=== PATIENT | female | born 1950 | race Hispanic/Latino ===

== ENCOUNTER 2017-06-01 13:40 | Inpatient (IN) | payer MEDICARE, MEDICAID ==
[2017-06-01 15:26] LABS: Anion Gap 7 mmol/L (-14-95); Lactate 2.24 mmol/L (0.50-2.20); POC Est. GFR-MDRD-African-Amer Greater than 60 (2-60); POC Estimated GFR-MDRD Greater than 60 (2-60); pH (Venous) 7.417 (7.35-7.45); vO2 Saturation-calc 45.6 % (0.0-100.0)
[2017-06-01 16:11] LABS: #Lymphocytes 1.2 thou/uL (1.20-3.40); #Neutrophils 14.3 thou/uL (1.40-6.50); %Basophils 0.2 % (0.0-1.0); %Eosinophils 0.1 % (0.0-10.0); %Lymphocytes 7.3 % (21.0-51.0); %Monocytes 5.9 % (0.0-10.0); Hematocrit 36.7 % (36.0-47.0); Mean Platelet Volume 7.7 fL (7.4-10.4); Red Blood Cell (RBC) Count 4.08 mill/uL (4.20-5.40); White Blood Cell (WBC) Count 16.5 thou/uL (4.8-10.8)
--- NOTE | 2017-06-01 16:15 | RAD ---
1 VIEW CHEST: Date: 06/01/17 HISTORY: Body aches. Cramping. Chills. COMPARISON: None. FINDINGS: Portable upright chest demonstrates a normal cardiac silhouette. Pulmonary vessels and hilum are nor mal. Costophrenic angles are clear. No masses or consolidation. No pneumothorax or osseous abnormali ties. IMPRESSION: No acute cardiopulmonary process. POS: [facility]
[2017-06-01 16:31] LABS: Lactic Acid - Sepsis 2.6 mmol/L (0.5-2.2)
[2017-06-01 16:39] LABS: ALT (SGPT) 38 U/L (8-55); AST (SGOT) 36 U/L (5-34); Alkaline Phosphatase 85 U/L (40-150); Anion Gap 16 mmol/L (10-20); BUN (Urea Nitrogen) 16 mg/dL (9.8-20.1); Bilirubin, Total 0.3 mg/dL (0.2-1.2); CK (CPK) 111 U/L (29-168); Calc. Creatinine Clearance 0 mL/min (70-130); Calcium 9.6 mg/dL (7.8-10.44); Carbon Dioxide 23 mmol/L (23-31); Chloride 102 mmol/L (98-107); Estimated GFR-MDRD 83; Globulin 3.5 g/dL (2.4-3.5); Protein, Total 7.9 g/dL (6.0-8.3)
[2017-06-01] MEDS ORDERED: Ibuprofen 200 MG TAB ONE (16:42)
[2017-06-01] MEDS ORDERED: Acetaminophen 500 MG TAB ONE (16:42)
[2017-06-01 16:43] LABS: Troponin I Less than 0.010 ng/mL (< 0.028)
[2017-06-01 16:54] LABS: Bilirubin Negative (Negative); Blood, Urine Trace (Negative); Glucose, Urine (Dipstick) Negative (Negative); Ketone, Urine Negative (Negative); Nitrite Negative (Negative); Protein, Urine (Dipstick) Negative (Neg-Trace); Urobilinogen 0.2 mg/dL (0.2-1.0)
[2017-06-01 17:04] LABS: Bacteria/HPF None Seen HPF (None Seen); Hyaline Casts/LPF NONE SEEN LPF (0-3 Hyaline); RBC/HPF 0-3 HPF (0-3); Squamous Epithelial 0-3 HPF (0-3); WBC/HPF 0-3 HPF (0-3)
[2017-06-01] MEDS ORDERED: Piperacillin/Tazobactam 3.375 GM VIAL ONE (18:05)
[2017-06-01] MEDS ORDERED: Dextrose 5% in Water 1,000 ML IV PRN (18:47)
[2017-06-01] MEDS ORDERED: Dextrose 50% Abboject 50 ML SYRINGE SLOW IVP PRN (18:47)
[2017-06-01] MEDS ORDERED: Bisacodyl 5 MG TAB PO PRN (18:47)
[2017-06-01] MEDS ORDERED: HumaLOG 300 UNITS/3 ML VIAL SC PRN (18:47)
[2017-06-01] MEDS ORDERED: Acetaminophen 650 MG Suppository PR PRN (18:47)
[2017-06-01 19:38] VITALS: BMI 24.0
--- NOTE | 2017-06-01 19:46 | HP ---
PRIMARY CARE PROVIDER: [facility]. CHIEF COMPLAINT: Chills. HISTORY OF PRESENT ILLNESS: Ms. Peters is a pleasant 67-year-old lady, who was seen at [facility] on 06/01/2017. She reports that she was feeling well until today morning. Earlier today, she developed chills. Sh e reports feeling tired. She reports body aches. She reports lightheadedness. She denies any ches t pain. She denies any shortness of breath. She denies any cough, dysuria or increased frequency o f urination. She denies any abdominal pain. She reports that her whole body felt hot and cold at t he same time. She therefore presented to the emergency room. Please note that patient mainly speaks Mohawk. One of her family members was the theology teacher for th is clinical encounter. REVIEW OF SYSTEMS: The following complete review of systems was negative, unless otherwise mentione d in the HPI or below: CONSTITUTIONAL: Weight loss or gain, sense of well-being, ability to conduct usual activities, exer cise tolerance. SKIN/BREAST: Rash, itching, changes in hair growth or loss, nail changes, breast lumps, tenderness, swelling, nipple discharge. EYES: Vision, double vision, tearing, blind spots, pain. ENT/MOUTH: Headaches (location, time of onset, duration, precipitating factors), vertigo, lighthead edness, injury. Vision, double vision, tearing, blind spots, pain, nose bleeding, colds, obstruction , discharge, dental difficulties, gingival bleeding, dentures, neck stiffness, pain, tenderness, mas ses in thyroid or other areas. CARDIOVASCULAR: Precordial pain, substernal distress, palpitations, syncope, dyspnea on exertion, o rthopnea, nocturnal paroxysmal dyspnea, edema, cyanosis, hypertension, heart murmurs, varicosities, phlebitis, claudication. RESPIRATORY: Pain, shortness of breath, wheezing, stridor, cough, hemoptysis, fever or night sweats . GASTROINTESTINAL: Poor appetite, dysphagia, indigestion, abdominal pain, heartburn, eructation, sujey sea, vomiting, hematemesis, jaundice, constipation, or diarrhea, abnormal stools (jeremy-colored, kraig y, bloody, greasy, foul smelling), flatulence, hemorrhoids, recent changes in bowel habits. GENITOURINARY: Urgency, frequency, dysuria, nocturia, hematuria, polyuria, oliguria, unusual (or ch benton in) color of urine, stones, hesitancy, change in size of stream, dribbling, acute retention or incontinence, libido, potency. MUSCULOSKELETAL: Pain, swelling, redness or heat of muscles or joints, limitation, of motion, muscu lar weakness, atrophy, cramps. NEUROLOGIC/PSYCHIATRIC: Convulsions, paralyses, tremor, incoordination, paresthesias, difficulties with memory of speech, sensory or motor disturbances, or muscular coordination (ataxia, tremor), emo tional problems, anxiety, depression, previous psychiatric care, unusual perceptions, hallucinations . ALLERGY/IMMUNOLOGIC: Skin rash, anemia, bleeding tendency, polydipsia, polyuria, intolerance to hea t or cold. PAST MEDICAL HISTORY: Significant for diabetes mellitus and dyslipidemia. PAST SURGICAL HISTORY: None. SOCIAL HISTORY: The patient denies tobacco use, alcohol use or recreational drug use. FAMILY HISTORY: Significant for diabetes mellitus in her sister. ALLERGIES: No known drug allergies. CURRENT MEDICATIONS: Include metformin 1000 mg 2 times a day, Pioglitazone 30 mg daily, atorvastati n 10 mg daily, and losartan 50 mg daily. PHYSICAL EXAMINATION: GENERAL: Ms. Peters is awake and alert, not in acute distress. VITAL SIGNS: Blood pressure is 126/51, pulse is 98. She is breathing at rate of 18 and saturating 97% on room air. Her current temperature is 99.9 degrees Fahrenheit. At 1624 hours, she had a rect al temperature of 103.6 degrees Fahrenheit. EYES: No scleral icterus. No conjunctival pallor. ENT: Moist mucosal membranes, no oropharyngeal erythema or exudate. NECK: Supple, nontender, normal range of movement. Trachea is midline. RESPIRATORY: Accessory muscles of breathing are not active. Chest wall movements are symmetric evonne aterally. LUNGS: Clear to auscultation without wheeze, rhonchi or crepitations. CARDIOVASCULAR: S1 and S2 are heard, regular. Peripheral pulses palpable. No carotid bruit, no pe ricardial rub. ABDOMEN: Soft, nontender, bowel sounds heard, no hepatomegaly, no splenomegaly. MUSCULOSKELETAL: Power is 5/5 in all 4 extremities. Normal range of movement at all major extremit y joints. NEUROLOGIC: Cranial nerves II-XII are intact. Deep tendon reflexes are 2+. SKIN: No rashes. She has a left flank subcutaneous mass, tethered to the skin, soft consistency. LYMPHATIC: No cervical lymphadenopathy. PSYCHIATRIC: Normal mood, normal affect, patient is oriented to time, place, and person. LABORATORY DATA: Ms. Peters's labs and investigations were reviewed. She had a chest x-ray, whi ch did not show any acute cardiopulmonary process. Laboratory investigation showed leukocytosis wit h 16,500 white cells, of which 86.6% are neutrophils, normal platelet count, normocytic anemia with hemoglobin of 11.9, normal electrolytes, normal creatinine, hypoglycemia with glucose 58, elevated lactic acid level of 2.6, slightly elevated AST of 36, otherwise unremarkable liver profile, normal troponin I and urinalysis positive for trace blood. ASSESSMENT AND PLAN: Ms. Peters is a pleasant 67-year-old lady, who was seen at [facility]. Her problem list includes: 1. Sepsis: Ms. Peters is presenting with symptoms that meet the criteria for sepsis, unknown so urce of infection at this time, could be bacteremia. She will be admitted to the hospital and treat ed with intravenous fluids and intravenous antibiotics in the form of vancomycin and Zosyn. We will await blood cultures. 2. Soft tissue mass: We will obtain ultrasound to further evaluate. 3. Dyslipidemia: Continue statin. 4. Diabetes mellitus type 2. Resume home medications, start Accu-Cheks and insulin sliding scale. Many thanks for allowing me to participate in your patient's care. Please feel free to contact me w ith any questions or concerns. LEVEL OF RISK: Moderate. LEVEL OF COMPLEXITY: Moderate.
[2017-06-01] MEDS: Sodium Chloride 0.9% 1,000 ML IV SCH (19:54)
[2017-06-01] MEDS: Vancomycin HCl 1 GM in Premix Bag 1 BAG IVPB SCH (20:17)
[2017-06-01] MEDS ORDERED: Ondansetron HCl/PF 4 MG/2 ML Vial IVP PRN (20:49)
--- NOTE | 2017-06-01 21:22 | ULT ---
ABDOMINAL WALL SOFT TISSUE ULTRASOUND: 06/01/17 HISTORY: 67-year-old female presents with a palpable finding on the left flank with concern for the possibili ty of a lipoma. The left flank region of clinical concern is evaluated with ultrasound. There is very poorly defined soft tissue mass, very indistinct and poorly marginated, approximately measuring 1.9 x 7.8 x 5.6 cm . This has ultrasound echogenicity which certainly could represent some focal fat either that of a l ipoma versus a focal fatty subcutaneous tissue. The possibility of this representing a fat containin g abdominal hernia is a consideration as well. No evidence of associated bowel involvement. No fluid collection. IMPRESSION: Indeterminate soft tissue mass accounting for the palpable finding in the region of the left flank. This could possibly represent a lipoma, a prominent focal area of fatty subcutaneous asymmetric tis jenni, or possibly even an abdominal wall fat containing hernia, although no definite hernia defect is definitely seen. I would recommend a followup CT scan for further assessment of this which would al low much improved characterization of this palpable mass. This is not a fluid collection. POS: [facility]
[2017-06-01] MEDS ORDERED: Piperacillin/Tazobactam 4.5 GM in Sodium Chloride 0.9% 100 ML IVPB SCH (22:00)
[2017-06-02] MEDS: Piperacillin/Tazobactam 4.5 GM in Sodium Chloride 0.9% 100 ML IVPB SCH ×3 (01:54→18:21)
[2017-06-02] MEDS ORDERED: Iopamidol 370 76% 100 ML VIAL ONE (03:55)
[2017-06-02] MEDS: Acetaminophen 325 MG TAB PO PRN ×2 (05:11→22:00)
[2017-06-02] MEDS: Sodium Chloride 0.9% 1,000 ML IV SCH ×4 (05:13→22:00)
[2017-06-02 05:37] LABS: #Lymphocytes 0.7 thou/uL (1.20-3.40); #Monocytes 0.6 thou/uL (0.11-0.59); #Neutrophils 11.2 thou/uL (1.40-6.50); %Basophils 0.1 % (0.0-1.0); %Eosinophils 0.1 % (0.0-10.0); %Lymphocytes 5.8 % (21.0-51.0); %Monocytes 4.6 % (0.0-10.0); Hematocrit 31.3 % (36.0-47.0); Mean Platelet Volume 7.7 fL (7.4-10.4); Red Blood Cell (RBC) Count 3.49 mill/uL (4.20-5.40); White Blood Cell (WBC) Count 12.6 thou/uL (4.8-10.8)
[2017-06-02 05:53] LABS: Anion Gap 11 mmol/L (10-20); BUN (Urea Nitrogen) 10 mg/dL (9.8-20.1); Calc. Creatinine Clearance 78 mL/min (70-130); Carbon Dioxide 24 mmol/L (23-31); Chloride 106 mmol/L (98-107); Estimated GFR-MDRD 86
[2017-06-02] MEDS ORDERED: Mag-Al 1200 mg/1200 mg/30 ML UDCUP PO PRN (07:44)
[2017-06-02] MEDS ORDERED: Chloraseptic Spray 180 ml Bottle PO PRN (07:44)
[2017-06-02] MEDS ORDERED: Milk Of Magnesia 30 ML UDCUP PO PRN (07:44)
[2017-06-02] MEDS ORDERED: Artificial Tears 18 DROP/0.9 ML EA EYE PRN (07:44)
[2017-06-02] MEDS ORDERED: Benzonatate 100 MG CAP PO PRN (07:44)
[2017-06-02] MEDS ORDERED: Eucerin (Mineral Oil/Petrolatum,White) 30 gm Jar TOP PRN (07:44)
[2017-06-02] MEDS ORDERED: Loratadine 10 MG TAB PO PRN (07:44)
[2017-06-02] MEDS ORDERED: Loperamide HCl 2 MG CAP PO PRN (07:44)
[2017-06-02] MEDS ORDERED: Sodium Chloride 0.65% Nasal 44 ML BOT EA NARE PRN (07:44)
[2017-06-02] MEDS ORDERED: Temazepam 15 MG CAP PO PRN (07:44)
[2017-06-02] MEDS ORDERED: HYDROcodone/Acetaminophen 5/325 mg Tablet PO PRN (07:44)
[2017-06-02] MEDS ORDERED: Diabetic Tussin 200 MG/10 ML UDCUP PO PRN (07:44)
[2017-06-02] MEDS ORDERED: Ondansetron ODT 4 MG TAB PO PRN (07:44)
[2017-06-02] MEDS ORDERED: FLU VACC TS2017-18 (>65YR) 0.5 ML SYRINGE IM ONE (09:00)
[2017-06-02] MEDS: Atorvastatin Calcium 10 MG TAB PO SCH (09:38)
[2017-06-02] MEDS: Vancomycin HCl 1 GM in Premix Bag 1 BAG IVPB SCH ×2 (09:38→20:31)
[2017-06-02] MEDS: Multivit, Therapeutic 1 TAB PO SCH (09:39)
[2017-06-02] MEDS: Losartan Potassium 25 MG TAB PO SCH (09:39)
[2017-06-02] MEDS: Enoxaparin Sodium 40 MG/0.4 ML SYRINGE SC SCH (09:39)
[2017-06-02] MEDS: Famotidine 20 MG TAB PO SCH ×2 (09:39→20:33)
[2017-06-02] MEDS: Pioglitazone HCl 15 MG TAB PO SCH (09:40)
--- NOTE | 2017-06-02 13:21 | PDOC.PN ---
- Subjective Encounter Start Date: 06/02/17 Encounter Start Time: 09:00 -: old records requested/rev Patient seen and examined. No new complaints. No overnight events, no fever now , had fever last night - Objective Resuscitation Status: Resuscitation Status FULL:Full Resuscitation MAR Reviewed: Yes Vital Signs & Weight: Vital Signs (12 hours) Temp Pulse Resp BP BP Pulse Ox 06/02/17 11:03 98 F 74 16 120/57 L 95 06/02/17 08:23 98.6 F 80 16 97 06/02/17 07:30 98.6 F 80 16 120/62 97 06/02/17 04:00 100.2 F H 91 18 125/67 93 L Weight Weight 135 lb 6.4 oz I&O: 06/01/17 06/02/17 06/03/17 06:59 06:59 06:59 Intake Total 1840 1040 Balance 1840 1040 Result Diagrams: 06/02/17 04:33 06/02/17 04:33 Additional Labs: Accuchecks 06/02/17 06/02/17 06/01/17 11:03 05:01 19:43 POC Glucose 144 H 121 H 244 H Phys Exam - Physical Examination Constitutional: NAD HEENT: PERRLA, moist MMs, sclera anicteric Neck: no JVD, supple Respiratory: no wheezing, no rales, no rhonchi Cardiovascular: RRR, no significant murmur, no rub Gastrointestinal: soft, non-tender, no distention, positive bowel sounds Musculoskeletal: no edema, pulses present Neurological: non-focal, normal sensation, moves all 4 limbs Lymphatic: no nodes Psychiatric: normal affect, A&O x 3 Skin: no rash, normal turgor Dx/Plan (1) Hypoglycemia associated with type 2 diabetes mellitus Code(s): E11.649 - TYPE 2 DIABETES MELLITUS WITH HYPOGLYCEMIA WITHOUT COMA Status: Acute (2) Lactic acidosis Code(s): E87.2 - ACIDOSIS Status: Acute (3) Sepsis Code(s): A41.9 - SEPSIS, UNSPECIFIED ORGANISM Status: Acute (4) Soft tissue mass Code(s): M79.9 - SOFT TISSUE DISORDER, UNSPECIFIED Status: Acute (5) Anemia, normocytic normochromic Code(s): D64.9 - ANEMIA, UNSPECIFIED Status: Chronic (6) Diabetes type 2, controlled Code(s): E11.9 - TYPE 2 DIABETES MELLITUS WITHOUT COMPLICATIONS Status: Chronic (7) Dyslipidemia Code(s): E78.5 - HYPERLIPIDEMIA, UNSPECIFIED Status: Chronic - Plan cont current plan of care, plan discussed w/ family, continue antibiotics * continue vancomycin and zosyn * follow on culture * will get CT abdomen and pelvis * discussed with son * medication reviewed as below * symptomatic treatment. Review of Systems - Review of Systems Constitutional: Fever, Weakness. negative: Chills, Sweats, Malaise, Other ENT: negative: Ear Pain, Ear Discharge, Nose Pain, Nose Discharge, Nose Congestion, Mouth Pain, Mouth Swelling, Throat Pain, Throat Swelling, Other Respiratory: negative: Cough, Dry, Shortness of Breath, Hemoptysis, SOB with Excertion, Pleuritic Pain, Sputum, Wheezing Cardiovascular: negative: Chest Pain, Palpitations, Orthopnea, Paroxysmal Noc. Dyspnea, Edema, Light Headedness, Other Gastrointestinal: negative: Nausea, Vomiting, Abdominal Pain, Diarrhea, Constipation, Melena, Hematochezia, Other Genitourinary: negative: Dysuria, Frequency, Incontinence, Hematuria, Retention , Other Musculoskeletal: negative: Neck Pain, Shoulder Pain, Arm Pain, Back Pain, Hand Pain, Leg Pain, Foot Pain, Other Skin: negative: Rash, Lesions, Agustin, Bruising, Other - Medications/Allergies Allergies/Adverse Reactions: Allergies Allergy/AdvReac Type Severity Reaction Status Date / Time No Known Drug Allergies Allergy Verified 06/01/17 18:45 Medications: Current Medications Acetaminophen (Tylenol) 650 mg PO Q4H PRN PRN Reason: Headache/Fever or Pain Last Admin: 06/02/17 05:11 Dose: 650 mg Acetaminophen (Tylenol) [address] Q4H PRN PRN Reason: Headache/Fever or Pain Hydrocodone Bitart/Acetaminophen ([place] 5/325) 1 tab PO Q4H PRN PRN Reason: Moderate Pain (4-6) Al Hydroxide/Mg Hydroxide (Maalox) 15 ml PO Q4H PRN PRN Reason: Heartburn or Indigestion Artificial Tears (Tears Naturale) 0 drop EA EYE PRN PRN PRN Reason: Dry Eyes Atorvastatin Calcium (Lipitor) 10 mg PO DAILY [facility] Last Admin: 06/02/17 09:38 Dose: 10 mg Benzonatate (Tessalon) 100 mg PO Q4H PRN PRN Reason: Cough Bisacodyl (Dulcolax) 10 mg PO DAILYPRN PRN PRN Reason: Constipation Dextrose/Water (Dextrose 50%) 25 gm SLOW IVP PRN PRN PRN Reason: Hypoglycemia Enoxaparin Sodium (Lovenox) 40 mg SC 0900 [facility] Last Admin: 06/02/17 09:39 Dose: 40 mg Famotidine (Pepcid) 20 mg PO BID [facility] Last Admin: 06/02/17 09:39 Dose: 20 mg Glipizide (Glucotrol Xl) 5 mg PO BID-[facility] Last Admin: 06/02/17 08:14 Dose: 5 mg Glucagon (Glucagon) 1 mg IM PRN PRN PRN Reason: Hypoglycemia Guaifenesin (Robitussin Sf) 200 mg PO Q4H PRN PRN Reason: Cough Hydralazine HCl (Apresoline) 10 mg SLOW IVP Q4H PRN PRN Reason: Systolic BP > 180 Vancomycin HCl 1 gm/ Device 200 mls @ 200 mls/hr IVPB 08,1999 [facility] Last Admin: 06/02/17 09:38 Dose: 200 mls Dextrose/Water (D5w) 1,000 mls @ 0 mls/hr IV .Q0M PRN; As Directed PRN Reason: Hypoglycemia Sodium Chloride (Normal Saline 0.9%) 1,000 mls @ 100 mls/hr IV .Q10H [facility] Last Admin: 06/02/17 08:20 Dose: 1,000 mls Piperacillin Sod/Tazobactam (Sod 4.5 gm/ Sodium Chloride) 100 mls @ 200 mls/hr IVPB Q8H [facility] Last Admin: 06/02/17 12:11 Dose: 100 mls Insulin Human Lispro (Humalog) 0 units SC .MILD SLIDING SCALE PRN PRN Reason: Mild Correctional Scale Loperamide HCl (Imodium) 2 mg PO PRN PRN PRN Reason: Diarrhea/Loose Stools Loratadine (Claritin) 10 mg PO DAILYPRN PRN PRN Reason: Sinus Symptoms Losartan Potassium (Cozaar) 50 mg PO DAILY [facility] Last Admin: 06/02/17 09:39 Dose: 50 mg Magnesium Hydroxide (Milk Of Magnesium) 30 ml PO DAILYPRN PRN PRN Reason: Constipation Metformin HCl (Glucophage) 1,000 mg PO BID-WM [facility] Last Admin: 06/02/17 08:14 Dose: 1,000 mg Mineral Oil/White Petrolatum (Eucerin Cream) 0 gm TOP BIDPRN PRN PRN Reason: Dry Skin Miscellaneous Medication (Pharmacy To Dose) 1 each IVPB PRN PRN PRN Reason: . Multivitamins (Theragran) 1 tab PO DAILY [facility] Last Admin: 06/02/17 09:39 Dose: 1 tab Ondansetron HCl (Zofran) 4 mg IVP Q6H PRN PRN Reason: Nausea/Vomiting Ondansetron HCl (Zofran Odt) 4 mg PO Q6H PRN PRN Reason: Nausea/Vomiting Phenol (Chloraseptic [place] 180 Ml Bot) 0 ml PO PRN PRN PRN Reason: Sore Throat Pioglitazone HCl (Actos) 30 mg PO DAILY [facility] Last Admin: 06/02/17 09:40 Dose: 30 mg Sodium Chloride ([place] Nasal [place] 0.65%) 0 ml EA NARE QIDPRN PRN PRN Reason: Nasal Congestion Sodium Chloride (Flush - Normal Saline) 10 ml IVF Q12HR [facility] Last Admin: 06/02/17 12:11 Dose: 10 ml Sodium Chloride (Flush - Normal Saline) 10 ml IVF PRN PRN PRN Reason: Saline Flush Temazepam (Restoril) 15 mg PO HSPRN PRN PRN Reason: Insomnia
--- NOTE | 2017-06-02 15:35 | CT ---
CT ABDOMEN AND PELVIS WITH IV AND ORAL COTNRAST: HISTORY: Sepsis. Left flank mass. COMPARISON: 11/23/06. Sonogram from 06/01/17. FINDINGS: Mild scarring and atelectasis is present at the lung bases. The liver, spleen, kidneys, adrenal gla nds, and pancreas are within normal limits. Scattered diverticula arise from the colon without dirk cent inflammation. There is calcification in the arterial structures. Degenerative changes of the lumbar spine are apparent. A large amount of oral contrast is apparent throughout the partially vis ualized esophagus. At the left flank, no focal lesions are apparent within the musculature or subcutaneous tissues. A calcified granuloma is noted within the subcutaneous tissues at the left upper gluteal level. IMPRESSION: 1. No focal soft tissue mass is visible at the left flank in region of palpable concern. The lesio n demonstrated on sonogram is likely related to focal prominence of the subcutaneous fat. No aggres sive process is apparent. 2. Diverticulosis. No evidence of diverticulitis. 3. Atherosclerosis. POS: [facility]
[2017-06-03] MEDS: Piperacillin/Tazobactam 4.5 GM in Sodium Chloride 0.9% 100 ML IVPB SCH ×3 (03:16→17:02)
[2017-06-03 05:23] LABS: #Eosinphils 0.1 thou/uL (0.0-0.7); #Lymphocytes 1.5 thou/uL (1.20-3.40); #Monocytes 0.5 thou/uL (0.11-0.59); #Neutrophils 4.4 thou/uL (1.40-6.50); %Basophils 0.2 % (0.0-1.0); %Lymphocytes 22.7 % (21.0-51.0); %Monocytes 7.9 % (0.0-10.0); Hematocrit 29.7 % (36.0-47.0); Mean Platelet Volume 7.7 fL (7.4-10.4); Red Blood Cell (RBC) Count 3.29 mill/uL (4.20-5.40); White Blood Cell (WBC) Count 6.5 thou/uL (4.8-10.8)
[2017-06-03 05:33] LABS: Anion Gap 10 mmol/L (10-20); BUN (Urea Nitrogen) 6 mg/dL (9.8-20.1); Calc. Creatinine Clearance 93 mL/min (70-130); Calcium 8.6 mg/dL (7.8-10.44); Carbon Dioxide 22 mmol/L (23-31); Chloride 110 mmol/L (98-107); Estimated GFR-MDRD Greater than 90
[2017-06-03 07:26] LABS: Vancomycin, Trough 9.3 ug/mL
[2017-06-03] MEDS: Losartan Potassium 25 MG TAB PO SCH (08:14)
[2017-06-03] MEDS: Pioglitazone HCl 15 MG TAB PO SCH (08:14)
[2017-06-03] MEDS: Atorvastatin Calcium 10 MG TAB PO SCH (08:14)
[2017-06-03] MEDS: Enoxaparin Sodium 40 MG/0.4 ML SYRINGE SC SCH (08:14)
[2017-06-03] MEDS: Multivit, Therapeutic 1 TAB PO SCH (08:14)
[2017-06-03] MEDS: Famotidine 20 MG TAB PO SCH ×2 (08:15→20:13)
[2017-06-03] MEDS: Vancomycin HCl 1 GM in Premix Bag 1 BAG IVPB SCH (08:20)
[2017-06-03] MEDS: Vancomycin HCl 1.5 GM in Sodium Chloride 0.9% 250 ML 300 ML IVPB SCH ×2 (09:42→20:13)
[2017-06-03] MEDS: Sodium Chloride 0.9% 1,000 ML IV SCH ×2 (11:26→20:14)
--- NOTE | 2017-06-03 13:27 | PDOC.PN ---
- Subjective Encounter Start Date: 06/03/17 Encounter Start Time: 11:00 Subjective: is sitting in chair, feels better -: no c/o cough or urinary symptoms -: no chest pain - Objective Resuscitation Status: Resuscitation Status FULL:Full Resuscitation MAR Reviewed: Yes Vital Signs & Weight: Vital Signs (12 hours) Temp Pulse Resp BP Pulse Ox 06/03/17 11:29 98.3 F 71 18 134/53 L 95 06/03/17 08:00 98.2 F 67 18 95 06/03/17 07:36 98.2 F 67 18 109/64 97 06/03/17 04:00 98.0 F 66 16 113/65 97 Weight Weight 135 lb 6.4 oz I&O: 06/02/17 06/03/17 06/04/17 06:59 06:59 06:59 Intake Total 1840 4240 360 Balance 1840 4240 360 Result Diagrams: 06/03/17 04:48 06/03/17 04:48 Additional Labs: Accuchecks 06/03/17 06/03/17 06/02/17 11:31 04:47 19:32 POC Glucose 192 H 78 120 H 06/02/17 15:55 POC Glucose 137 H Phys Exam - Physical Examination HEENT: PERRLA, moist MMs Neck: no JVD, supple Respiratory: no wheezing, no rales Cardiovascular: RRR, no significant murmur Gastrointestinal: soft, non-tender, positive bowel sounds Musculoskeletal: no edema, pulses present Neurological: non-focal, moves all 4 limbs Psychiatric: A&O x 3 Dx/Plan (1) Sepsis Code(s): A41.9 - SEPSIS, UNSPECIFIED ORGANISM Status: Acute Qualifiers: Sepsis type: sepsis due to unspecified organism Qualified Code(s): A41.9 - Sepsis, unspecified organism (2) Anemia, normocytic normochromic Code(s): D64.9 - ANEMIA, UNSPECIFIED Status: Chronic (3) Diabetes type 2, controlled Code(s): E11.9 - TYPE 2 DIABETES MELLITUS WITHOUT COMPLICATIONS Status: Chronic Qualifiers: Diabetes mellitus complication status: with unspecified complications Diabetes mellitus intermediate school teacher insulin use: without mcc use Qualified Code( s): E11.8 - Type 2 diabetes mellitus with unspecified complications (4) Dyslipidemia Code(s): E78.5 - HYPERLIPIDEMIA, UNSPECIFIED Status: Chronic (5) Chronic anemia Code(s): D64.9 - ANEMIA, UNSPECIFIED Status: Chronic - Plan is on vanc and zosyn -: hayward cultures are -ve so far -: unclear source of infection -: dc plan in am on oral antibiotics -: wbc down to 6 from 16 * . Review of Systems - Medications/Allergies Allergies/Adverse Reactions: Allergies Allergy/AdvReac Type Severity Reaction Status Date / Time No Known Drug Allergies Allergy Verified 06/01/17 18:45 Medications: Current Medications Acetaminophen (Tylenol) 650 mg PO Q4H PRN PRN Reason: Headache/Fever or Pain Last Admin: 06/02/17 22:00 Dose: 650 mg Acetaminophen (Tylenol) 650 mg [place] Q4H PRN PRN Reason: Headache/Fever or Pain Hydrocodone Bitart/Acetaminophen ([place] 5/325) 1 tab PO Q4H PRN PRN Reason: Moderate Pain (4-6) Al Hydroxide/Mg Hydroxide (Maalox) 15 ml PO Q4H PRN PRN Reason: Heartburn or Indigestion Artificial Tears (Tears Naturale) 0 drop EA EYE PRN PRN PRN Reason: Dry Eyes Atorvastatin Calcium (Lipitor) 10 mg PO DAILY [facility] Last Admin: 06/03/17 08:14 Dose: 10 mg Benzonatate (Tessalon) 100 mg PO Q4H PRN PRN Reason: Cough Bisacodyl (Dulcolax) 10 mg PO DAILYPRN PRN PRN Reason: Constipation Dextrose/Water (Dextrose 50%) 25 gm SLOW IVP PRN PRN PRN Reason: Hypoglycemia Enoxaparin Sodium (Lovenox) 40 mg SC 0900 [facility] Last Admin: 06/03/17 08:14 Dose: 40 mg Famotidine (Pepcid) 20 mg PO BID [facility] Last Admin: 06/03/17 08:15 Dose: 20 mg Glipizide (Glucotrol Xl) 5 mg PO BID-[facility] Last Admin: 06/03/17 08:14 Dose: 5 mg Glucagon (Glucagon) 1 mg IM PRN PRN PRN Reason: Hypoglycemia Guaifenesin (Robitussin Sf) 200 mg PO Q4H PRN PRN Reason: Cough Hydralazine HCl (Apresoline) 10 mg SLOW IVP Q4H PRN PRN Reason: Systolic BP > 180 Dextrose/Water (D5w) 1,000 mls @ 0 mls/hr IV .Q0M PRN; As Directed PRN Reason: Hypoglycemia Sodium Chloride (Normal Saline 0.9%) 1,000 mls @ 100 mls/hr IV .Q10H [facility] Last Admin: 06/03/17 11:26 Dose: Not Given Piperacillin Sod/Tazobactam (Sod 4.5 gm/ Sodium Chloride) 100 mls @ 200 mls/hr IVPB Q8H [facility] Last Admin: 06/03/17 10:53 Dose: 100 mls Vancomycin HCl 1.5 gm/ Sodium (Chloride) 300 mls @ 200 mls/hr IVPB 0900,2100 [facility] Last Admin: 06/03/17 09:42 Dose: 300 mls Insulin Human Lispro (Humalog) 0 units SC .MILD SLIDING SCALE PRN PRN Reason: Mild Correctional Scale Loperamide HCl (Imodium) 2 mg PO PRN PRN PRN Reason: Diarrhea/Loose Stools Loratadine (Claritin) 10 mg PO DAILYPRN PRN PRN Reason: Sinus Symptoms Losartan Potassium (Cozaar) 50 mg PO DAILY [facility] Last Admin: 06/03/17 08:14 Dose: 50 mg Magnesium Hydroxide (Milk Of Magnesium) 30 ml PO DAILYPRN PRN PRN Reason: Constipation Metformin HCl (Glucophage) 1,000 mg PO BID-[facility] Last Admin: 06/03/17 08:15 Dose: 1,000 mg Mineral Oil/White Petrolatum (Eucerin Cream) 0 gm TOP BIDPRN PRN PRN Reason: Dry Skin Miscellaneous Medication (Pharmacy To Dose) 1 each IVPB PRN PRN PRN Reason: . Multivitamins (Theragran) 1 tab PO DAILY [facility] Last Admin: 06/03/17 08:14 Dose: 1 tab Ondansetron HCl (Zofran) 4 mg IVP Q6H PRN PRN Reason: Nausea/Vomiting Ondansetron HCl (Zofran Odt) 4 mg PO Q6H PRN PRN Reason: Nausea/Vomiting Phenol (Chloraseptic [place] 180 Ml Bot) 0 ml PO PRN PRN PRN Reason: Sore Throat Pioglitazone HCl (Actos) 30 mg PO DAILY [facility] Last Admin: 06/03/17 08:14 Dose: 30 mg Sodium Chloride ([place] Nasal [place] 0.65%) 0 ml EA NARE QIDPRN PRN PRN Reason: Nasal Congestion Sodium Chloride (Flush - Normal Saline) 10 ml IVF Q12HR [facility] Last Admin: 06/03/17 08:18 Dose: 10 ml Sodium Chloride (Flush - Normal Saline) 10 ml IVF PRN PRN PRN Reason: Saline Flush Temazepam (Restoril) 15 mg PO HSPRN PRN PRN Reason: Insomnia
[2017-06-03] MEDS: Ferrous Sulfate 325 MG TAB PO SCH (17:02)
[2017-06-04] MEDS: Piperacillin/Tazobactam 4.5 GM in Sodium Chloride 0.9% 100 ML IVPB SCH ×2 (02:42→11:24)
[2017-06-04 06:55] LABS: #Eosinphils 0.1 thou/uL (0.0-0.7); #Lymphocytes 1.4 thou/uL (1.20-3.40); #Monocytes 0.5 thou/uL (0.11-0.59); #Neutrophils 4.8 thou/uL (1.40-6.50); %Basophils 0.4 % (0.0-1.0); %Eosinophils 1.4 % (0.0-10.0); %Lymphocytes 20.9 % (21.0-51.0); %Monocytes 6.7 % (0.0-10.0); Mean Platelet Volume 7.5 fL (7.4-10.4); Red Blood Cell (RBC) Count 3.13 mill/uL (4.20-5.40); White Blood Cell (WBC) Count 6.8 thou/uL (4.8-10.8)
[2017-06-04 07:17] LABS: Anion Gap 10 mmol/L (10-20); BUN (Urea Nitrogen) 6 mg/dL (9.8-20.1); Calc. Creatinine Clearance 90 mL/min (70-130); Calcium 8.7 mg/dL (7.8-10.44); Carbon Dioxide 24 mmol/L (23-31); Chloride 109 mmol/L (98-107); Estimated GFR-MDRD Greater than 90
[2017-06-04] MEDS: Sodium Chloride 0.9% 1,000 ML IV SCH (08:20)
[2017-06-04] MEDS: Famotidine 20 MG TAB PO SCH (08:31)
[2017-06-04] MEDS: Multivit, Therapeutic 1 TAB PO SCH (08:31)
[2017-06-04] MEDS: Atorvastatin Calcium 10 MG TAB PO SCH (08:31)
[2017-06-04] MEDS: Losartan Potassium 25 MG TAB PO SCH (08:31)
[2017-06-04] MEDS: Ferrous Sulfate 325 MG TAB PO SCH (08:31)
[2017-06-04] MEDS: Vancomycin HCl 1.5 GM in Sodium Chloride 0.9% 250 ML 300 ML IVPB SCH (08:32)
[2017-06-04] MEDS: Pioglitazone HCl 15 MG TAB PO SCH (08:32)
[2017-06-04] MEDS: Enoxaparin Sodium 40 MG/0.4 ML SYRINGE SC SCH (08:33)
[2017-06-04] MEDS ORDERED: Cyanocobalamin (Vitamin B-12) 1,000 MCG TAB PO SCH (09:00)
[2017-06-04] MEDS ORDERED: Folic Acid 1 MG TAB PO SCH (09:00)
[2017-06-04 11:27] VITALS: BP 127/69; TEMP 98.3
--- NOTE | 2017-06-04 13:55 | PDOC.PN ---
- Subjective Encounter Start Date: 06/04/17 Encounter Start Time: 07:15 Subjective: feels good, no sob - Objective Resuscitation Status: Resuscitation Status FULL:Full Resuscitation MAR Reviewed: Yes Vital Signs & Weight: Vital Signs (12 hours) Temp Pulse Resp BP Pulse Ox 06/04/17 11:26 98.3 F 80 20 127/69 96 06/04/17 08:06 98.6 F 65 20 06/04/17 07:37 98.6 F 65 20 119/68 95 06/04/17 05:05 98.9 F 73 16 126/64 Weight Weight 135 lb 6.4 oz I&O: 06/03/17 06/04/17 06/05/17 06:59 06:59 06:59 Intake Total 4240 2990 Balance 4240 2990 Result Diagrams: 06/04/17 06:34 06/04/17 06:34 Additional Labs: Accuchecks 06/04/17 06/04/17 06/03/17 11:07 05:08 20:03 POC Glucose 113 H 84 140 H 06/03/17 15:50 POC Glucose 171 H Phys Exam - Physical Examination HEENT: PERRLA, moist MMs Neck: no JVD, supple Respiratory: no wheezing, no rales Cardiovascular: RRR, no significant murmur Gastrointestinal: soft, non-tender, positive bowel sounds Musculoskeletal: no edema, pulses present Neurological: non-focal, moves all 4 limbs Psychiatric: A&O x 3 Dx/Plan (1) Sepsis Code(s): A41.9 - SEPSIS, UNSPECIFIED ORGANISM Status: Acute Qualifiers: Sepsis type: sepsis due to unspecified organism Qualified Code(s): A41.9 - Sepsis, unspecified organism (2) Anemia, normocytic normochromic Code(s): D64.9 - ANEMIA, UNSPECIFIED Status: Chronic (3) Diabetes type 2, controlled Code(s): E11.9 - TYPE 2 DIABETES MELLITUS WITHOUT COMPLICATIONS Status: Chronic Qualifiers: Diabetes mellitus complication status: with unspecified complications Diabetes mellitus watermelon inspector insulin use: without watermelon inspector use Qualified Code( s): E11.8 - Type 2 diabetes mellitus with unspecified complications (4) Dyslipidemia Code(s): E78.5 - HYPERLIPIDEMIA, UNSPECIFIED Status: Chronic (5) Chronic anemia Code(s): D64.9 - ANEMIA, UNSPECIFIED Status: Chronic - Plan hayward cultures are negative -: wbc down to 6 from 16 -: oral levaquin -: dc pt home -: d/w son at bedside, will need outpt colonoscopy due to anemia * .
--- NOTE | 2017-06-04 17:46 | DIS ---
DATE OF ADMISSION: 06/01/2017 DATE OF DISCHARGE: 06/04/2017 DISCHARGE DISPOSITION: To home. PRIMARY DISCHARGE DIAGNOSIS: Sepsis secondary to unknown cause. SECONDARY DISCHARGE DIAGNOSES: Chronic anemia, diabetes mellitus type 2, and dyslipidemia. PROCEDURES DONE DURING HOSPITALIZATION: CT of the abdomen and pelvis done showed no focal soft tiss ue mass was visible in the left flank area. Diverticulosis, no evidence of diverticulitis. Had a w cecile count of 16.5 with 86% neutrophils on admission and discharge numbers of 6.8 white cell, B12 le vels 307, folate 15.7, serum iron was 12. Ferritin was 115. Chest x-ray done on the day of admissi on showed no acute cardiopulmonary process. Blood cultures x2 no growth. Influenza A and B antigen s were negative. DISCHARGE MEDICATIONS: Levaquin 500 mg p.o. daily for another 5 days, ferrous sulfate 325 mg p.o. t wice daily, atorvastatin 10 mg p.o. daily, losartan 50 mg p.o. daily, multivitamin 1 tab once daily, pioglitazone 30 mg p.o. daily, glipizide 5 mg p.o. twice daily, metformin 1000 mg p.o. twice daily. ALLERGIES: No known drug allergies. DISCHARGE PLAN: Patient to follow up with her primary care physician in 1 week. She will also requ marilu outpatient colonoscopy in view of her chronic anemia, which is iron deficiency with low iron. BRIEF COURSE DURING HOSPITALIZATION: Patient initially came to ER with complaints of not feeling we ll. She had chills and was feeling tired with bodyaches prior to arrival. Had temperature of 99.9 degrees on arrival in the ER. Patient also had elevated white count. Zhang cultures were obtained an d initial chest x-ray showed no acute cardiopulmonary abnormalities. CT of the abdomen and pelvis s howed no acute abnormalities. Her blood cultures have not grown any organism. The patient was on I V antibiotics and has been switched over to oral Levaquin for another 5 days. Patient's sepsis and initial fever is of unclear origin. She also has iron deficiency anemia and needs outpatient colono scopy. Her last colonoscopy was 4 years back and she does not recall the exact findings done. Karissa mills see a face to face documentation on [employer] [facility] for the day of discharge.
== END 2017-06-04 13:50 | disposition home or self-care (01) | DRG 872 ==
LOC: ERS 13:40 → T4-B 18:03
PROVIDERS: ADMIT Internal Medicine; ATTEND Internal Medicine
DX: A41.9 Sepsis, unspecified organism (principal); E87.2 Acidosis; E11.649 Type 2 diabetes mellitus with hypoglycemia without coma; D50.9 Iron deficiency anemia, unspecified; E78.5 Hyperlipidemia, unspecified; M79.9 Soft tissue disorder, unspecified; Z23 Encounter for immunization; Z79.84 Long term (current) use of oral hypoglycemic drugs
CPT/HCPCS: 36415; 36416; 71010; 74177; 76705; 80048; 80053; 80202; 81003; 81015; 82330; 82435; 82550; 82553; 82565; 82607; 82728; 82746; 82803; 82947; 83540; 83605; 84132; 84295; 84484; 85014; 85025; 87040; 96360; 96361; A4216; J1650; J2405; J2543; J3370; J7050

== ENCOUNTER 2017-09-19 12:27 | Outpatient (CLI) | payer MEDICARE, MEDICAID | END 2017-09-19 12:28 | disposition home or self-care (01) | LOC: BICRAD 12:27 | PROVIDERS: ATTEND Family Medicine | DX: R05 Cough (principal); R50.9 Fever, unspecified; R53.83 Other fatigue | CPT/HCPCS: 71046 ==

== ENCOUNTER 2017-10-09 10:24 | Outpatient (CLI) | payer MEDICARE, MEDICAID | END 2017-10-09 10:25 | disposition home or self-care (01) | LOC: BICULT 10:24 | PROVIDERS: ATTEND Family Medicine | DX: R05 Cough (principal); R50.9 Fever, unspecified; R53.83 Other fatigue; E11.9 Type 2 diabetes mellitus without complications; I10 Essential (primary) hypertension; K76.0 Fatty (change of) liver, not elsewhere classified | CPT/HCPCS: 76700 ==

== ENCOUNTER 2019-04-16 20:33 | Emergency (ER) | payer MEDICARE, MEDICAID | END 2019-04-16 22:06 | disposition home or self-care (01) | LOC: SCSER 20:33 | DX: J02.9 Acute pharyngitis, unspecified (principal); E11.9 Type 2 diabetes mellitus without complications; E78.5 Hyperlipidemia, unspecified; Z79.84 Long term (current) use of oral hypoglycemic drugs; Z79.899 Other long term (current) drug therapy | CPT/HCPCS: 87081; 87430; 99283 ==

== ENCOUNTER 2019-05-03 08:47 | Outpatient (CLI) | payer MEDICARE, MEDICAID ==
--- NOTE | 2019-05-17 11:17 | MMO ---
Bilateral MAMMO Bilat Screen [facility]. CLINICAL HISTORY: Patient is 69 years old and is seen for screening. The patient has no family history of breast cancer. The patient has no personal history of cancer. VIEWS: The views performed were: bilateral craniocaudal with tomosynthesis and bilateral mediolateral oblique with tomosynthesis. FILMS COMPARED: The present examination has been compared to prior imaging studies performed at [facility] on 03/15/2016 and 05/16/2017, and at [facility] on 02/04/2011 and 07/05/2012. This study has been interpreted with the assistance of computer-aided detection. MAMMOGRAM FINDINGS: There are scattered fibroglandular densities. There are benign appearing calcifications seen in both breasts. There are benign scattered densities in both breasts. There are no suspicious masses, suspicious calcifications, or new areas of architectural distortion. IMPRESSION: THERE IS NO MAMMOGRAPHIC EVIDENCE OF MALIGNANCY. A ROUTINE FOLLOW-UP MAMMOGRAM IN 1 YEAR IS RECOMMENDED. THE RESULTS OF THIS EXAM WERE SENT TO THE PATIENT. ACR BI-RADS Category 2 - Benign finding MAMMOGRAPHY NOTE: 1. A negative mammogram report should not delay a biopsy if a dominant of clinically suspicious mass is present. 2. Approximately 10% to 15% of breast cancers are not detected by mammography. 3. Adenosis and dense breasts may obscure an underlying neoplasm. Reported by: BEN COVINGTON MD Electonically Signed: [id number]
== END 2019-05-03 08:48 | disposition home or self-care (01) ==
LOC: BICMAMMO 08:47
PROVIDERS: ATTEND Family Medicine
DX: Z12.31 Encounter for screening mammogram for malignant neoplasm of breast (principal)
CPT/HCPCS: 77063; 77067

== ENCOUNTER 2020-11-21 12:26 | Observation (INO) | payer MEDICARE, MEDICAID ==
[2020-11-21 13:30] LABS: #Monocytes 0.2 thou/uL (0.11-0.59); %Basophils 0.2 % (0.0-1.0); %Eosinophils 0.4 % (0.0-10.0); %Lymphocytes 30.9 % (21.0-51.0); %Monocytes 7.5 % (0.0-10.0); %Neutrophils 61.1 % (42.0-75.0); Mean Corpuscular HGB CONC 32.1 g/dL (32.0-36.0); Mean Corpuscular Hemoglobin 28.7 pg (27.0-31.0); Mean Corpuscular Volume 89.3 fL (78.0-98.0); Mean Platelet Volume 8.2 fL (7.4-10.4); Platelet Count 173 thou/uL (130-400); RBC Distribution Width 13.2 % (11.5-14.5); Red Blood Cell (RBC) Count 3.82 mill/uL (4.20-5.40); White Blood Cell (WBC) Count 3.3 thou/uL (4.8-10.8)
[2020-11-21 13:53] LABS: ALT (SGPT) 32 U/L (8-55); AST (SGOT) 25 U/L (5-34); Alkaline Phosphatase 86 U/L (40-110); Anion Gap 15 mmol/L (10-20); BUN (Urea Nitrogen) 11 mg/dL (9.8-20.1); Bilirubin, Total 0.2 mg/dL (0.2-1.2); Calc. Creatinine Clearance 0 mL/min (70-130); Calcium 8.6 mg/dL (7.8-10.44); Carbon Dioxide 21 mmol/L (23-31); Chloride 102 mmol/L (98-107); Globulin 3.5 g/dL (2.4-3.5); Glucose 244 mg/dL (80-115); Lipase 21 U/L (8-78); Protein, Total 7.5 g/dL (5.8-8.1); Sodium 134 mmol/L (136-145)
[2020-11-21] MEDS ORDERED: Aspirin Chewable 81 MG TAB ONE (13:57)
[2020-11-21] MEDS ORDERED: Nitroglycerin 2% Ointment 1 INCH/1 GM Packet ONE (13:57)
[2020-11-21] MEDS ORDERED: Ondansetron PF 4 MG/2 ML Vial IVP PRN (16:21)
[2020-11-21] MEDS ORDERED: Acetaminophen 325 MG TAB PO PRN (16:21)
[2020-11-21] MEDS ORDERED: Dextrose 5% in Water 1,000 ML IV PRN (16:25)
[2020-11-21] MEDS ORDERED: HumaLOG 300 UNITS/3 ML VIAL SC PRN ×2 (16:25)
[2020-11-21] MEDS ORDERED: Dextrose 50% Abboject 50 ML SYRINGE SLOW IVP PRN (16:25)
[2020-11-21] MEDS ORDERED: hydrALAZINE 20 MG/ML VIAL SLOW IVP PRN (16:30)
[2020-11-21] MEDS ORDERED: cloNIDine 0.1 MG TAB PO PRN (16:30)
[2020-11-21] MEDS ORDERED: Amlodipine 5 MG TAB PO SCH (16:45)
[2020-11-21 16:52] LABS: Troponin I Less than 0.010 ng/mL (< 0.028)
[2020-11-21 18:03] VITALS: BMI 27.7
[2020-11-21 19:23] LABS: SARS-CoV-2 NAA Rapid Test DETECTED (NotDetected)
[2020-11-21 20:45] LABS: Troponin I Less than 0.010 ng/mL (< 0.028)
[2020-11-21] MEDS ORDERED: Atorvastatin Calcium 10 MG TAB PO SCH (21:00)
[2020-11-21] MEDS ORDERED: Nitroglycerin 2% Ointment 1 INCH/1 GM Packet TOP SCH (22:00)
[2020-11-21] MEDS: Sodium Chloride 0.9% 1,000 ML IV SCH (23:30)
[2020-11-22 05:49] LABS: #Lymphocytes 1.4 thou/uL (1.20-3.40); #Monocytes 0.2 thou/uL (0.11-0.59); #Neutrophils 1.5 thou/uL (1.40-6.50); %Basophils 1.3 % (0.0-1.0); %Eosinophils 0.6 % (0.0-10.0); %Lymphocytes 45.6 % (21.0-51.0); %Monocytes 6.7 % (0.0-10.0); %Neutrophils 45.9 % (42.0-75.0); Hemoglobin 9.3 g/dL (12.0-16.0); Mean Corpuscular HGB CONC 32.3 g/dL (32.0-36.0); Mean Corpuscular Hemoglobin 28.8 pg (27.0-31.0); Mean Corpuscular Volume 89.3 fL (78.0-98.0); Mean Platelet Volume 8.3 fL (7.4-10.4); Platelet Count 162 thou/uL (130-400); RBC Distribution Width 13.3 % (11.5-14.5); Red Blood Cell (RBC) Count 3.24 mill/uL (4.20-5.40); White Blood Cell (WBC) Count 3.2 thou/uL (4.8-10.8)
[2020-11-22 05:58] LABS: Hemoglobin A1c 7.2 % (4.0-6.0)
[2020-11-22 07:02] LABS: Anion Gap 11 mmol/L (10-20); BUN (Urea Nitrogen) 10 mg/dL (9.8-20.1); Calc. Creatinine Clearance 92 mL/min (70-130); Calcium 8.2 mg/dL (7.8-10.44); Carbon Dioxide 23 mmol/L (23-31); Cardiac Risk 3.6 (Less than 4.5); Chloride 109 mmol/L (98-107); Cholesterol 123 mg/dl (< 200 Desired); Glucose 81 mg/dL (80-115); HDL Cholesterol 34 mg/dL (>60 Neg Risk); LDL Cholesterol, Calculated 69 mg/dL; Potassium 3.8 mmol/L (3.5-5.1); Sodium 139 mmol/L (136-145); Triglycerides 100 mg/dL (Less than 150)
[2020-11-22] MEDS: Sodium Chloride 0.9% 1,000 ML IV SCH (07:32)
[2020-11-22] MEDS ORDERED: Enoxaparin Sodium 40 MG/0.4 ML SYRINGE SC SCH (09:00)
[2020-11-22] MEDS ORDERED: Amlodipine 5 MG TAB PO SCH (09:00)
[2020-11-22] MEDS ORDERED: Aspirin 325 mg Enteric Coated Tablet PO SCH (09:00)
[2020-11-22] MEDS ORDERED: Losartan 25 MG TAB PO SCH (09:00)
[2020-11-22 11:32] VITALS: BP 144/63; TEMP 98.4
[2020-11-22 12:52] LABS: Ferritin 52.2 ng/mL (10-291)
== END 2020-11-22 15:00 | disposition home or self-care (01) ==
LOC: ERS 12:26 → 2SW 15:51
PROVIDERS: ADMIT Family Medicine; ATTEND Family Medicine
DX: U07.1 COVID-19 (principal); R07.89 Other chest pain; I10 Essential (primary) hypertension; E11.9 Type 2 diabetes mellitus without complications; E78.5 Hyperlipidemia, unspecified; I70.0 Atherosclerosis of aorta; D64.9 Anemia, unspecified; D72.819 Decreased white blood cell count, unspecified; Z79.84 Long term (current) use of oral hypoglycemic drugs; Z79.899 Other long term (current) drug therapy
CPT/HCPCS: 71046; 80048; 80053; 80061; 82010; 82607; 82728; 82746; 82962 ×2; 83036; 83540; 83690; 84484 ×2; 85025 ×2; 93005; 94760; U0002; 36415; 36416; 96372; G0378; J1650; J1815